=== PATIENT | male | born 1945 | race Caucasian/White ===

== ENCOUNTER 2019-01-15 08:11 | Inpatient (IN) ==
[2019-01-15] MEDS ORDERED: PROTONIX 80 MG in NS 80 ML IV ONE (09:23)
[2019-01-15] MEDS ORDERED: NS 1,000 ML IV ONE (09:23)
[2019-01-15 09:41] LABS: BASO# 0.02 X1000 (0.0-0.2); BASO% 0.4 % (0.0-0.8); EOS# 0.05 X1000 (0.0-0.7); EOS% 1.1 % (0.0-10.0); HEMATOCRIT 39.9 % (42.0-52.0); LYMPH# 0.45 X1000 (1.2-3.4); MCH 30.4 PG (27-31); MCHC 32.6 g/dL (33-37); MCV 93.4 FL (81-99); MONO# 0.61 X1000 (0.11-0.59); MONO% 13.5 % (1.7-9.3); MPV 11.3 FL (7.4-10.4); NEUT# 3.39 X1000 (1.4-6.5); PLT 251 X1000 (130-400); RBC 4.27 XMIL (4.7-6.1); RDW 12.7 % (11.5-14.5); WBC 4.52 X1000 (4.8-10.8)
[2019-01-15 09:49] LABS: INR 1.32; PROTIME 16.6 Seconds (11.0-16.0)
[2019-01-15 09:50] LABS: PTT 33.9 Seconds (22.3-41.8)
[2019-01-15 09:59] LABS: AGAP 11; ALB/GLOB RATIO 1.3; ALBUMIN 3.4 g/dL (3.5-5.0); ALKALINE PHOSPHATASE 77 U/L (32-122); BUN 23 mg/dL (8-22); CALCIUM 8.6 mg/dL (8.8-10.2); CHLORIDE 94 mmol/L (98-107); COSMO 270; CREATININE 0.9 mg/dL (0.7-1.2); ESTIMATED GFR > 60; GLUCOSE 105 mg/dL (70-104); GOT 17 U/L (10-34); GPT 8 U/L (10-44); POTASSIUM 3.2 mmol/L (3.5-5.1); SODIUM 133 mmol/L (136-145); TCO2 28 mmol/L (25-35); TOTAL BILIRUBIN 0.46 mg/dL (0.20-1.00); TOTAL PROTEIN 6.1 g/dL (6.3-8.3)
--- NOTE | 2019-01-15 11:00 | Diag Imaging Result Doc PS360 ---
EXAM: CHEST-PORTABLE - 01/15/2019 HISTORY: gi bleeding TECHNIQUE: Portable chest COMPARISON: None. FINDINGS: Inspiration is somewhat shallow. There is mild atelectasis at the left base. Lungs otherwise appear clear. There is no pleural effusion or pneumothorax identified. Heart size appears within normal limits. IMPRESSION: Somewhat shallow inspiration, mild atelectasis at left base. No other evidence of acute disease. Electronically signed by Arcenio Matute 01/15/2019 10:57 AM
--- NOTE | 2019-01-15 12:31 | Diag Imaging Result Doc PS360 ---
EXAM: CT ABD/PELVIS W/IV CONT ONLY - 01/15/2019 HISTORY: colitis TECHNIQUE: CT abdomen/pelvis with intravenous contrast COMPARISON: 05/21/2012 CT pelvis with contrast, 04/21/2009 CT renal stone search without contrast FINDINGS: There are no substantial abnormalities of the liver, spleen, adrenal glands, pancreas identified. The gallbladder is mildly prominent in size and appears to be chronic. There is a 1.8 cm partially calcified gallstone in gallbladder. There is no substantial gallbladder wall thickening or pericholecystic inflammation identified. The bilateral kidneys enhance homogeneously except for cyst at the lower right kidney. There is no hydronephrosis. There are no substantially enlarged lymph nodes identified. There are lumbar spine degenerative changes noted. There is no evidence of bowel obstruction. The right colon is tortuous. The appendix is unremarkable. There is extensive diverticulosis along the descending and sigmoid colon. There is apparent mild wall thickening along the descending and sigmoid colon which may relate to mild colitis. There is no focal inflammation identified which would indicate diverticulitis. There is no free air, free fluid, or abscess identified. IMPRESSION: Extensive descending and sigmoid colon diverticulosis. No discrete diverticulitis. Mild wall thickening along the descending and sigmoid colon suggestive of mild colitis. No abscess. No free air. 1.8 cm gallstone in gallbladder. No pericholecystic inflammation. This exam was performed using automated exposure control, adjustment of mA or kV according to patient size, and/or use of iterative reconstruction technique. Electronically signed by Arcenio Matute 01/15/2019 12:29 PM
[2019-01-15] MEDS ORDERED: ZOSYN 4.5 GM in NS 100 ML IV ONE (12:50)
--- NOTE | 2019-01-15 12:55 | PROVIDER DOCUMENTATION ---
This chart was entered by Katrin Botello Scribe, acting as scribe for Rd Roach MD. HPI-Abdominal Pain/GI Problem - General Chief Complaint: GI Bleed Stated Complaint: ABD PAIN,DIARRHEA WITH BLOOD Time Seen by Provider: 01/15/19 09:22 Allergies/Adverse Reactions: Patient Allergies Allergy/AdvReac Type Severity Reaction Status Date / Time No Known Allergies Allergy Verified 01/15/19 09:47 Home Medications: Home Medication List Medication Instructions Recorded Confirmed Last Taken Type Amlodipine Besylate 10 mg PO DAILY 01/15/19 01/15/19 01/15/19 History Amoxicillin 500 mg PO BID 01/15/19 01/15/19 01/15/19 History Apalutamide [Erleada] 60 mg PO 4XDAY 01/15/19 01/15/19 01/15/19 History Apixaban [Eliquis] 5 mg PO BID 01/15/19 01/15/19 01/15/19 History Clarithromycin [Biaxin] 500 mg PO BID 01/15/19 01/15/19 01/15/19 History Hydrochlorothiazide 25 mg PO DAILY 01/15/19 01/15/19 01/15/19 History Metoprolol Succinate E.r. [Toprol 50 mg PO QHS 01/15/19 01/15/19 01/14/19 History Xl] Metoprolol Succinate E.r. [Toprol 100 mg PO QAM 01/15/19 01/15/19 01/15/19 History Xl] Omeprazole 40 mg PO DAILY 01/15/19 01/15/19 01/15/19 History - History of Present Illness-ABD Nature of Presenting Problems: 73 yom presents to er w/cc low abd pain and rectal bleed for last 24 hours. pt was recently d/c [facility] for [facility]asic aneurysm. pt on rx elaquis for afib. pt has hx of erosive esophagitus and gastritis but no hx of gi bleed. pt is pallor but pleasant and in no distress at bedside. Abdominal Pain Onset Location: reports: RLQ, LLQ Pain Radiation: reports: no radiation Severity in ED: reports: moderate Onset/Duration: reports: 24 hours ago Timing: reports: still present Activities at Onset: reports: none Modifying Factors: improves with: nothing Associated Symptoms: reports: denies symptoms. denies: diarrhea, nausea, vomiting Last BM: unsure Dark Stools Present?: reports: none noticed Rectal Bleeding: reports: blood mixed with stool Rectal Pain: reports: none Emesis Description: reports: none Review of Systems - Adult - REVIEW OF SYSTEMS - ADULT Constitutional: reports: no symptoms reported. denies: fever, fatique, night sweats Eyes: reports: no symptoms reported Ears, Nose, Mouth & Throat: reports: no symptoms reported Cardiovascular: reports: no symptoms reported Respiratory: reports: no symptoms reported Gastrointestinal: reports: see HPI, abdominal pain (low abd), rectal bleeding. denies: diarrhea, nausea, vomiting Genitourinary: reports: no symptoms reported Musculoskeletal: reports: no symptoms reported Integumentary: reports: no symptoms reported Neurological: reports: no symptoms reported Psychiatric: reports: no symptoms reported Endocrine: reports: no symptoms reported Hematologic/Lymphatic: reports: no symptoms reported Allergic/Immunologic: reports: no symptoms reported All Other Systems: Reviewed and Negative Past History - Adult - PAST MEDICAL HISTORY-ADULT Review of Records: reports: Nursing Assessment Review, Medications Reviewed, Social history reviewed & non-contributory. Major Childhood Illnesses: reports: denies history Cardiovascular: reports: A-Fib, HTN, hyperlipidemia Respiratory: reports: denies history Gastrointestinal: reports: denies history Obstetrical/Gynecological: reports: denies history Genitourinary: reports: prostate cancer Musculoskeletal: reports: denies history Neurological: reports: denies history Endocrine/Immune: reports: denies history Other Conditions: reports: denies history - PRIOR SURGERIES/PROCEDURES Surgical/Procedure History: reports: orthopedic (extremity), other (5.3 cm ascending aortic aneurysm, prostate) - IMMUNIZATION STATUS Childhood Immunizations: See Nurse Assessment Flu Vaccine: See Nurse Assessment - FAMILY HISTORY Family History: reviewed, not pertinent - SOCIAL HISTORY Smoking: non-smoker Substance Use: none/never Physical Exam-General - PHYSICAL EXAM-ADULT Initial Vital Signs Reviewed: Yes - CONSTITUTIONAL General Appearance: appears well, alert, no apparent distress. negative: lethargic, slow to respond, obtunded - EYES Eyes: PERRL/EOMI, pink conjunctivae - HEAD, EARS, NOSE, MOUTH & THROAT HENMT: normocephalic/atraumatic. negative: moist mucous membranes (dry mucous membranes), angioedema, frontal tenderness, maxillary tenderness - NECK Neck: non-tender, full range of motion, supple, normal inspection - RESPIRATORY Respiratory: chest non-tender, lungs clear, normal breath sounds - CARDIOVASCULAR Cardiovascular: normal peripheral pulses, no edema, no gallop, no JVD, no murmur , irregularly irregular. negative: regular rate, rhythm, bradycardia, tachycardia - GASTROINTESTINAL (ABDOMEN) Abdominal Exam: normal bowel sounds, soft, no organomegaly, no pulsatile mass, tenderness (LLQ and RLQ to palp, LLQ WORSE THAN RIGHT.). negative: non tender, guarding, rigid, rebound - GENITOURINARY Rectal Exam: hemorrhoids (slight @ 0600.), other (blood mixed w/brown stool) Hemoccult Exam: heme positive stool - LYMPHATIC Lymphatic: no adenopathy - MUSCULOSKELETAL Back Exam: normal inspection Extremity: normal range of motion, non-tender, normal inspection - SKIN Integumentary: normal turgor, warm/dry, pallor. negative: normal color, blanching, ecchymosis, rash - NEUROLOGIC Neurologic: grossly normal, no motor/sensory deficits - PSYCHIATRIC Psych/Mental Status: normal mood/affect, normal thought content, normal thought process, oriented x 3 Progress - PLAN OF CARE/RESULTS Progress/Plan/Lab Results: Vital Signs - 8 hr 01/15/19 08:14 Temperature 97.4 F L Pulse Rate 89 Respiratory Rate 18 Blood Pressure 145/77 O2 Sat by Pulse Oximetry 96 01/15/19 09:32 Stool Occult Blood ([facility]) - Final Stool Laboratory Results - last 24 hr 01/15/19 01/15/19 01/15/19 09:28 09:28 09:28 WBC 4.52 L RBC 4.27 L Hgb 13.0 L Hct 39.9 L MCV 93.4 MCH 30.4 MCHC 32.6 L RDW Std Deviation 12.7 Plt Count 251 MPV 11.3 H Immature Gran % (Auto) 0.0 Neut % (Auto) 75.0 Lymph % (Auto) 10.0 L Cedar % (Auto) 13.5 H Eos % (Auto) 1.1 Baso % (Auto) 0.4 Immature Gran # (Auto) 0.00 Neut # (Auto) 3.39 Lymph # (Auto) 0.45 L Cedar # (Auto) 0.61 H Eos # (Auto) 0.05 Baso # (Auto) 0.02 PT 16.6 H INR 1.32 PTT (Actin FS) 33.9 Sodium 133 L Potassium 3.2 L Chloride 94 L Carbon Dioxide 28 Anion Gap 11 BUN 23 H Creatinine 0.9 Estimated GFR/1.73 m2 > 60 BUN/Creatinine Ratio 26 Glucose 105 H Calculated Osmolality 270 Calcium 8.6 L Total Bilirubin 0.46 AST 17 ALT 8 L Alkaline Phosphatase 77 Total Protein 6.1 L Albumin 3.4 L Globulin 2.7 Albumin/Globulin Ratio 1.3 Blood Type Antibody Screen 01/15/19 09:28 WBC RBC Hgb Hct MCV MCH MCHC RDW Std Deviation Plt Count MPV Immature Gran % (Auto) Neut % (Auto) Lymph % (Auto) Cedar % (Auto) Eos % (Auto) Baso % (Auto) Immature Gran # (Auto) Neut # (Auto) Lymph # (Auto) Cedar # (Auto) Eos # (Auto) Baso # (Auto) PT INR PTT (Actin FS) Sodium Potassium Chloride Carbon Dioxide Anion Gap BUN Creatinine Estimated GFR/1.73 m2 BUN/Creatinine Ratio Glucose Calculated Osmolality Calcium Total Bilirubin AST ALT Alkaline Phosphatase Total Protein Albumin Globulin Albumin/Globulin Ratio Blood Type O POSITIVE Antibody Screen NEGATIVE Orders Category Date Time Status Nursing- Obtain EKG once Care 01/15/19 09:23 Active CHEST-PORTABLE [RAD] Stat Exams 01/15/19 09:[address] ABD/PELVIS W/IV CONT ONLY [CT] Stat Exams 01/15/19 09:24 Ordered CBC WITH ELECTRONIC DIFF [HEME] Stat Lab 01/15/19 09:28 Completed COMPREHENSIVE METABOLIC PANEL [CHEM] Stat Lab 01/15/19 09:28 Completed OCCULT BLOOD SCREENING [STOOL] Stat Lab 01/15/19 09:32 Completed PROTIME WITH INR [COAG] Stat Lab 01/15/19 09:28 Completed PTT [COAG] Stat Lab 01/15/19 09:28 Completed TYPE & SCREEN [BBK] Stat Lab 01/15/19 09:28 Completed 0.9% Sodium Chloride Inj [Ns] 1,000 ml Med 01/15/19 09:23 Discontinued IV 999 mls/hr Pantoprazole [Protonix] 80 mg Med 01/15/19 09:23 Discontinued 0.9% Sodium Chloride Inj [Ns] 80 ml IV NOW GI Bleed (possible) Stat Oth 01/15/19 09:14 Ordered EKG [EKG] Stat Ther 01/15/19 09:23 Ordered Result Diagrams: 01/15/19 09:28 01/15/19 09:28 - REASSESSMENT Reassessment #1 Time Reassessed: 12:53 Status: improving (Given iVF, protonix and zosyn) - EKG 1 Time of EKG reading by physician:: 10:00 EKG Read and Signed by:: Rd Roach (ARTIFACT PRESENT ) EKG Interpretation (*Must complete 3 of following elements*): Abnormal Rate: 77 (EARLY TRANSITION ) Rhythm: AFIB, RATE CONTROLLED ST Wave: non-specific ST changes ([id number]) Comments: NO STEMI - XRAY 1 XRAY Study: Chest Impression: Abnormal, See EMR Report ( EXAM: CHEST-PORTABLE - 01/15/2019 HISTORY: gi bleeding TECHNIQUE: Portable chest COMPARISON: None. FINDINGS: Inspiration is somewhat shallow. There is mild atelectasis at the left base. Lungs otherwise appear clear. There is no pleural effusion or pneumothorax identified. Heart size appears within normal limits. IMPRESSION: Somewhat shallow inspiration, mild atelectasis at left base. No other evidence of acute disease. Electronically signed by Arcenio Matute 01/15/2019 10:57 AM) - CT/MRI 1 CT Study: Abdomen, Pelvis Impression: Abnormal, See EMR Report (EXAM: CT ABD/PELVIS W/IV CONT ONLY - 01/15/2019 HISTORY: colitis TECHNIQUE: CT abdomen/pelvis with intravenous contrast COMPARISON: 05/21/2012 CT pelvis with contrast, 04/21/2009 CT renal stone search without contrast FINDINGS: There are no substantial abnormalities of the liver, spleen, adrenal glands, pancreas identified. The gallbladder is mildly prominent in size and appears to be chronic. There is a 1.8 cm partially calcified gallstone in gallbladder. There is no substantial gallbladder wall thickening or pericholecystic inflammation identified. The bilateral kidneys enhance homogeneously except for cyst at the lower right kidney. There is no hydronephrosis. There are no substantially enlarged lymph nodes identified. There are lumbar spine degenerative changes noted. There is no evidence of bowel obstruction. The right colon is tortuous. The appendix is unremarkable. There is extensive diverticulosis along the descending and sigmoid colon. There is apparent mild wall thickening along the descending and sigmoid colon which may relate to mild colitis. There is no focal inflammation identified which would indicate diverticulitis. There is no free air, free fluid, or abscess identified. IMPRESSION: Extensive descending and sigmoid colon diverticulosis. No discrete diverticulitis. Mild wall thickening along the descending and sigmoid colon suggestive of mild colitis. No abscess. No free air. 1.8 cm gallstone in gallbladder. No pericholecystic inflammation. This exam was perf ormed using automated exposure control, adjustment of mA or kV according to patient size, and/or use of iterative reconstruction technique. Electronically signed by Arcenio Matute 01/15/2019 12:29 PM) - CONSULTS/PCP/HOSPITALIST Notification #1 *Consult/PCP/Hospitalist*: Saniya Time Discussed: 12:52 Consult Disposition: Admit Departure - Departure Date of Disposition Decision: 01/15/19 Time of Disposition Decision: 12:53 DIAGNOSIS: Lower gastrointestinal bleeding, Anticoagulant-induced bleeding, Colitis, Diverticulosis of both small and large intestine without perforation or abscess with bleeding Disposition: ADMITTED INPATIENT 09 Certified Medical Emergency: Emergent Condition: Fair Referrals and Follow-Ups: Janki Mancini MD [Primary Care Provider] - - Critical Care Note This patient required my direct & personal management of CC.: No Attestation - Physician/ DAMIR Attestation Patient care was provided by Advanced Practice Provider:: No The physician spent face to face time with patient:: Yes Advanced Practice Provider documentation review:: Supervising physician onsite and consulted in the evaluation and care of this patient. The physician did have a face to face encounter with the patient. This chart was documented by the indicated scribe, (Katrin Botello Scribe) and accurately reflects the services I performed and decisions made by , Rd Roach MD, as attested by the provider's signature.
[2019-01-15] MEDS ORDERED: TYLENOL PO PRN (13:09)
[2019-01-15] MEDS ORDERED: LEVAQUIN 750 MG/D5W 750 MG/150 ML IVPB IV ONE (13:09)
[2019-01-15] MEDS ORDERED: ZOFRAN IV PRN (13:09)
[2019-01-15] MEDS ORDERED: SODIUM CHLORIDE 0.9% INJ SCH (13:15)
[2019-01-15 13:25] LABS: IRON SATURATION 24 %; TIBC 220 ug/dL; TOTAL IRON 52 ug/dL (53-167); UNBOUND IRON 168 ug/dL (112-346)
[2019-01-15 13:45] LABS: FERRITIN 177 ng/mL (30-400)
--- NOTE | 2019-01-15 14:46 | HISTORY AND PHYSICAL ---
PRIMARY CARE PROVIDER: Dr. Janki Mancini. PRIMARY ONCOLOGIST: Dr. Barrios. PRIMARY INSIDE SALES SUPERVISOR: Dr. Gonzales. CHIEF COMPLAINT: Abdominal pain and blood in the stool. HISTORY OF PRESENT ILLNESS: Mr. Benja Clay is a 73-year-old, male with a medical history of diverticulosis, a 5.3 cm ascending aortic aneurysm being watched by cardiology, atrial fibrillation, he was started on Eliquis a week ago, and prostate cancer that he has been fighting for 10 years. Now states that since they were recently, 2 to 3 weeks ago, monitoring his ascending aortic aneurysm that they had noticed something with his esophagus. Dr. Barroso did an EGD and diagnosed him with esophagitis and H. pylori for which he was treating him with using amoxicillin and clarithromycin. He has been on this for at least a week and then 2 to 3 days ago, he started noticing he started having excessive diarrhea that had an odd smell to it. Then, this morning, he had bright red blood in his stool. He has generalized lower abdominal pain. The CT showed extensive diverticulosis without diverticulitis. Then it also showed mild colitis. His stool was positive for blood and he has been started on Protonix. Vital signs are stable. Eliquis will be held for now. There is high suspicion that C. difficile colitis may be the culprit, although his white count is not elevated. It is noted that he was on an NSAID up until about 2 to 3 weeks ago when he was taken off of it. PAST MEDICAL HISTORY: 1. Diverticulosis. 2. Ascending aortic aneurysm. 3. Chronic atrial fibrillation, on Eliquis for a week now. 4. Hypertension. 5. GERD. 6. Prostate cancer over 10 years with a prostatectomy and chemotherapy. 7. Hyperlipidemia. 8. Esophagitis with H. pylori. 9. Arthritis. SURGICAL HISTORY: 1. Prostatectomy. 2. Bilateral feet surgery when he was a child. 3. EGD around 2 to [address] Barroso. SOCIAL HISTORY: He uses a rolling walker to get around. He denies tobacco, alcohol, or illicit drug use. He lives alone in [facility]. FAMILY HISTORY: Mother: No medical conditions. Father: Melanoma. ALLERGIES: No known drug allergies. HOME MEDICATIONS: 1. Toprol-XL 50 mg p.o. nightly and 100 mg p.o. daily. 2. Amlodipine 10 mg p.o. daily. 3. Eliquis 5 mg p.o. twice daily. 4. Erleada 60 mg p.o. 4 times a day. 5. Hydrochlorothiazide 25 mg p.o. daily. 6. Omeprazole 40 mg p.o. daily. REVIEW OF SYSTEMS: Fourteen point review of systems are complete and all are negative except for those mentioned above in the HPI. PHYSICAL EXAMINATION: VITAL SIGNS: Temperature 97.4 degrees, heart rate 72, respiratory rate 19, blood pressure 133/80, O2 saturation 95% on room air. GI: Soft. Tender in the bilateral lower quadrants. Positive bowel sounds x4. EXTREMITIES: Decreased range of motion. Decreased strength in the lower extremities compared to the upper. NEUROLOGIC: A and O x3. Follows commands. Sensory is intact. SKIN: Warm, dry, intact. CARDIOVASCULAR: S1, S2. Regular rate and rhythm. No rubs, gallops, murmurs. He has got +2 dorsalis pedal and radial pulses. There is 1+ pitting lower extremity edema. Negative for JVD or carotid bruits. LABORATORY DATA: White blood cells 4000, hemoglobin 13, hematocrit 39, platelet count 251,000. INR is 1.32, PTT is 33.9. Sodium 133, potassium 3.2, BUN 23, creatinine 0.9, glucose 105, calcium 8.6. Iron 52, total iron binding capacity is 220, saturation 24, unsaturated 168, ferritin 177. Bilirubin 0.46, AST 17, ALT 8, albumin 3.4. Vitamin B12 of 234, folate 13.9. IMAGING: Shows extensive descending and sigmoid colon diverticulosis. No discrete diverticulitis. Mild wall thickening along the descending and sigmoid colon, suggestive of mild colitis. No abscess or free air. There is a 1.8 cm gallstone in the gallbladder. No pericholecystic inflammation. ASSESSMENT AND PLAN: 1. Gastrointestinal bleed secondary to recent esophagitis which he has been on omeprazole, clarithromycin, and amoxicillin for. Probably change his antibiotics around. Bleeding, possibly from Eliquis that was just started a week ago. 2. Diarrhea with recent antibiotic coverage. Could be Clostridium difficile colitis. We will do stool studies. 3. Atrial fibrillation, rate controlled at the moment. Continue metoprolol. We will have to redress anticoagulation once bleeding is resolved. 4. Reported 5.3 cm ascending aortic aneurysm, being monitored by his pool hall inspector. 5. Prostate cancer. Continue Erleada. May consult Dr. Barrios if needed. 6. Hyperlipidemia. His statin was held while he was on antibiotics. 7. Arthritis. No changes. 8. Deep venous thrombosis prophylaxis. Sequential compression devices. Dictated by CHAO Morton for Maykel Ya MD Addendum: Patient seen and examined by myself. Agree with GRAVEL WEIGHER note. It reflects my assessment and plan. Patient is being admitted to hospital for GI bleed secondary to recent esophagitis. Will consult GI and will do stool studies. Will monitor patient closely. cc: CHAO Morton MD [facility] CENTEREdi
[2019-01-15] MEDS: NS 1,000 ML IV SCH (15:44)
[2019-01-15] MEDS: CARAFATE LIQUID PO SCH ×2 (16:08→20:26)
--- NOTE | 2019-01-15 17:53 | EKG Report ---
Test Performed on : 01/15/2019 09:41:17 AM Test Reason : Gi bleeding Blood Pressure : / mmHG Vent. Rate : 077 BPM Atrial Rate : 227 BPM P-R Int : 000 ms QRS Dur : 074 ms QT Int : 394 ms P-R-T Axes : 000 003 -10 degrees QTc Int : 445 ms Atrial fibrillation. T wave abnormality, consider anterior ischemia Abnormal ECG No previous ECGs available Unconfirmed Result
[2019-01-15] MEDS: FLAGYL 500 MG/NS 500 MG/100 ML IVPB IV SCH ×2 (18:57→21:41)
[2019-01-15] MEDS: PROTONIX IV SCH (20:27)
[2019-01-15] MEDS: TOPROL XL PO SCH (20:38)
[2019-01-16] MEDS: CARAFATE LIQUID PO SCH ×4 (01:07→20:31)
[2019-01-16] MEDS: FLAGYL 500 MG/NS 500 MG/100 ML IVPB IV SCH ×4 (01:08→20:33)
[2019-01-16 07:25] LABS: BASO# 0.01 X1000 (0.0-0.2); BASO% 0.2 % (0.0-0.8); EOS# 0.04 X1000 (0.0-0.7); EOS% 0.8 % (0.0-10.0); HEMATOCRIT 38.2 % (42.0-52.0); HEMOGLOBIN 12.5 g/dL (14.0-18.0); LYMPH# 0.65 X1000 (1.2-3.4); MCH 30.6 PG (27-31); MCHC 32.7 g/dL (33-37); MCV 93.4 FL (81-99); MONO# 0.54 X1000 (0.11-0.59); MONO% 10.8 % (1.7-9.3); NEUT# 3.77 X1000 (1.4-6.5); NEUT% 75.2 % (42.2-75.2); PLT 248 X1000 (130-400); RBC 4.09 XMIL (4.7-6.1); RDW 12.4 % (11.5-14.5); WBC 5.01 X1000 (4.8-10.8)
[2019-01-16 07:54] LABS: INR 1.12; PROTIME 14.6 Seconds (11.0-16.0)
[2019-01-16 07:55] LABS: PTT 34.8 Seconds (22.3-41.8)
[2019-01-16 07:56] LABS: AGAP 8; ALB/GLOB RATIO 1.3; ALBUMIN 3.1 g/dL (3.5-5.0); ALKALINE PHOSPHATASE 69 U/L (32-122); BUN 9 mg/dL (8-22); CALCIUM 8.6 mg/dL (8.8-10.2); CHLORIDE 98 mmol/L (98-107); COSMO 269; CREATININE 0.6 mg/dL (0.7-1.2); ESTIMATED GFR > 60; GLUCOSE 104 mg/dL (70-104); GOT 17 U/L (10-34); GPT 8 U/L (10-44); MAGNESIUM 1.7 mg/dL (1.5-2.7); POTASSIUM 3.5 mmol/L (3.5-5.1); SODIUM 135 mmol/L (136-145); TCO2 29 mmol/L (25-35); TOTAL BILIRUBIN 0.65 mg/dL (0.20-1.00); TOTAL PROTEIN 5.5 g/dL (6.3-8.3)
[2019-01-16] MEDS: TOPROL XL PO SCH ×2 (08:42→20:32)
[2019-01-16] MEDS: PROTONIX IV SCH ×2 (08:42→20:31)
[2019-01-16] MEDS: HYDROCHLOROTHIAZIDE PO SCH (08:42)
--- NOTE | 2019-01-16 11:45 | PROGRESS NOTE ---
DATE: 01/16/2019 SUBJECTIVE: The patient reports feeling better. Not having more episodes of black stools or bloody stools. OBJECTIVE: Vital Signs: Temperature 98.1 degrees, heart rate 62, respiratory rate 14, blood pressure 146/61, O2 saturation 99% on room air. General Examination: This is a 73-year-old, male, lying in bed, in no acute distress. Cardiovascular Examination: S1 and S2 heard. No murmurs, gallops, or rubs. Regular rate and rhythm. Respiratory Examination: Clear bilaterally to auscultation. No work of breathing or using accessory muscles. Abdomen: Soft. Mild tenderness to palpation in bilateral lower quadrants. There are no signs of peritoneal irritation. Extremities: No clubbing or cyanosis. There is 1+ pitting edema in both lower extremities. Neurological Examination: The patient is alert and oriented x3. Moves 4 extremities. Laboratory Data: White cell count 5.01, hemoglobin 12.5, hematocrit 38.2, platelets 248,000. Sodium 135, creatinine 0.6. ASSESSMENT AND PLAN: 1. Gastrointestinal bleeding. At this point, we are not sure where this bleeding is coming from. He has a history of esophagitis. Also, the patient had been started on Eliquis from a week ago. At this point, we will continue to monitor. Gastroenterology apparently will do an endoscopy and colonoscopy tomorrow. 2. Clostridium difficile colitis suspected. Stool studies have been ordered but results are not yet back. We will continue to monitor. 3. Atrial fibrillation. Rate controlled. Continue with metoprolol but, of course, anticoagulation has been stopped. 4. Ascending aortic aneurysm. Aware. Patient has been monitored by his neuropsychiatric aide. 5. Prostate cancer. Aware. We will continue home medications. 6. Hyperlipidemia. Statin has been held. 7. Deep vein thrombosis prophylaxis with sequential compression devices. 8. Disposition, following the lead from the signing agent. cc: Maykel Ya MD
[2019-01-16] MEDS ORDERED: GOLYTELY PO ONE (14:00)
--- NOTE | 2019-01-16 14:01 | GASTROENTEROLOGY CONSULTATION ---
DATE: 01/16/2019 REASON FOR CONSULTATION: Gastrointestinal bleed and colitis. HISTORY OF PRESENT ILLNESS: Mr. Clay is a 73-year-old male who has a history of diverticulitis, ascending aortic aneurysm and history of arthritis. The patient has been seeing his oncologist Dr. Barrios for his prostate cancer. He sees his outpatient receptionist, Dr. Gonzales for his heart. The patient was recently started on Eliquis a week back. The patient mentioned that he had 3 loose stools and he noticed that the last bowel movement had some bright red blood in it. He complained of nausea, vomiting and he mentioned that he had abdominal pain which he rated as 7/10 and it was a generalized pain all over. The patient said that he takes aspirin and he was he started on Eliquis recently. The patient mentioned that Dr. Graham had done his EGD and he was diagnosed with esophagitis and his H pylori was positive and was treated with antibiotics antibiotic, amoxicillin, and clarithromycin. He does not remember the exact date when he had the EGD done, but he also mentioned that he had a colonoscopy done 5 years back and they found out that he had some polyps. Abdomen and pelvis CT showed extensive descending and sigmoid colon diverticulosis but no discrete diverticulitis. Mild wall thickening along the descending and the sigmoid colon suggesting mild colitis. No abscess. No free air. 1.8 cm gallstone in the gallbladder. No pericholecystic inflammation. The patient's occult blood was positive. PAST MEDICAL HISTORY: Diverticulosis, ascending aortic aneurysm, atrial fibrillation on Eliquis a week back, hypertension, gout, prostate cancer greater than 10 years with prostatectomy and radiation, hyperlipidemia, esophagitis, history of H-pylori and arthritis. SURGICAL HISTORY: Prostatectomy, bilateral feet surgery, bilateral cataract surgery. SOCIAL HISTORY: The patient is single. He lives alone in an apartment. He has denied any alcohol, tobacco use, or illicit drug use. The patient does use a rolling walker to get around. FAMILY HISTORY: His dad had melanoma. Mother had staph infection in the knee. Both his grandmothers had breast cancer and his brother had brain cancer. ALLERGIES: No known drug allergies. MEDICATIONS: Home medications are amlodipine 10 mg daily, amoxicillin 500 mg twice a day, Erleada 60 mg p.o. 4 times a day, Eliquis 5 mg twice a day. Biaxin 500 mg p.o. twice a day, hydrochlorothiazide 25 mg daily, metoprolol 50 mg at bedtime, omeprazole 40 mg daily, and metoprolol 100 mg in the a.m. REVIEW OF SYSTEM: As per HPI. Otherwise, 12 point review of system is negative. PHYSICAL EXAMINATION: Vital Signs: Temperature 98.1 degrees, pulse 62, respirations 14, blood pressure 146/61, oxygen saturation 99% on room air. The patient's weight 171 pounds. BMI is 27.6 kg/m2. General: He is alert, oriented x3. Answering questions appropriately and in no acute distress. HEENT: Pale conjunctivae, no icterus. PERRL Neck: Supple. Lungs: Clear to auscultation in the anterior capps. Cardiovascular: Regular rate and rhythm. Abdomen: Soft, tender, nondistended. Active bowel sounds heard in all 4 quadrants. Extremities: No clubbing, no cyanosis. Generalized edema in the lower extremities. Neurologic: Alert oriented x3. Nonfocal. Cranial nerves 2-12 grossly intact. LABS: WBC of 5.01, RBC 4.09, hemoglobin 12.5, hematocrit 38.2, platelet count 248,000. PT 14.6, INR 1.12. Sodium 135, potassium 3.5, chloride 98, carbon dioxide 29, anion gap 8, BUN 9, creatinine 0.6, glucose 104, calcium 8.6, magnesium 1.7, total bilirubin 0.65, AST 17, ALT 8, alkaline phosphatase 69, albumin 3.1. IMAGING: CT of the abdomen and pelvis that showed extensive descending and sigmoid colon diverticulosis. No discrete diverticulitis. Mild thickening along the descending and the sigmoid colon suggestive of mild colitis. No abscess. No free air. 1.8 cm gallstone in the gallbladder. No pericholecystic inflammation. Chest x-ray showed somewhat shallow inspiration and mild atelectasis in the left base. No other evidence of acute disease. ASSESSMENT AND PLAN: GI bleed Nausea and vomiting Diarrhea Colitis A-fib Prostate cancer s/p radiation Ascending aortic aneurysm Arthritis PLAN: Plan Mr. Clay is a 73-year-old male with a history of prostate cancer status post radiation and a history of ascending aortic aneurysm. GI has been consulted for his nausea, vomiting, and GI bleed. The patient is currently on Protonix 40 mg IV twice a day. He is receiving Carafate and 1 g p.o. every 6 hours. He is on normal saline at 50 mL, receiving Flagyl for his diarrhea and antiemetic Zofran for his nausea and vomiting. His C-diff antigen and toxin was negative. We plan to do a colonoscopy tomorrow. Further plan of care will be based on the colonoscopy findings. Discussed the risks, benefits, and alternatives of the procedure to the patient. The patient acknowledges understanding of the plan of care. We will continue to monitor the patient and follow the plan of care per PCP. This plan was discussed with Dr. Houser. Please call us for any further questions or concerns. Thank you for your consult. Please call us for any further questions or concerns. Dictated by CHAO Nunez for Arvin Houser MD cc: Arvin Houser MD I have seen and examined the patient myself and I agree with the above plan of care. Discussed the above with the patient and all questions were answered. ADELIA
[2019-01-16] MEDS: NS 1,000 ML IV SCH (17:36)
[2019-01-17] MEDS: NS 1,000 ML IV SCH ×2 (01:53→04:41)
[2019-01-17] MEDS: CARAFATE LIQUID PO SCH ×2 (03:06→13:56)
[2019-01-17] MEDS: FLAGYL 500 MG/NS 500 MG/100 ML IVPB IV SCH ×2 (03:07→08:32)
[2019-01-17 07:28] LABS: BASO# 0.01 X1000 (0.0-0.2); BASO% 0.2 % (0.0-0.8); EOS# 0.07 X1000 (0.0-0.7); EOS% 1.3 % (0.0-10.0); HEMOGLOBIN 12.8 g/dL (14.0-18.0); LYMPH# 0.85 X1000 (1.2-3.4); MCH 30.3 PG (27-31); MCHC 32.8 g/dL (33-37); MCV 92.2 FL (81-99); MONO# 0.72 X1000 (0.11-0.59); MONO% 13.6 % (1.7-9.3); NEUT# 3.65 X1000 (1.4-6.5); NEUT% 68.9 % (42.2-75.2); PLT 278 X1000 (130-400); RBC 4.23 XMIL (4.7-6.1); RDW 12.3 % (11.5-14.5)
[2019-01-17 07:33] VITALS: BP 140/72
[2019-01-17 08:05] LABS: AGAP 12; ALB/GLOB RATIO 1.5; ALBUMIN 3.5 g/dL (3.5-5.0); ALKALINE PHOSPHATASE 70 U/L (32-122); BUN 6 mg/dL (8-22); CALCIUM 8.9 mg/dL (8.8-10.2); CHLORIDE 96 mmol/L (98-107); COSMO 273; CREATININE 0.6 mg/dL (0.7-1.2); ESTIMATED GFR > 60; GLUCOSE 100 mg/dL (70-104); GOT 21 U/L (10-34); GPT 9 U/L (10-44); MAGNESIUM 1.7 mg/dL (1.5-2.7); POTASSIUM 3.1 mmol/L (3.5-5.1); SODIUM 138 mmol/L (136-145); TCO2 30 mmol/L (25-35); TOTAL BILIRUBIN 0.68 mg/dL (0.20-1.00); TOTAL PROTEIN 5.9 g/dL (6.3-8.3)
[2019-01-17] MEDS: PROTONIX IV SCH (08:32)
[2019-01-17] MEDS ORDERED: PATIENT'S OWN MED PO SCH (09:00)
[2019-01-17] MEDS ORDERED: POTASSIUM CHLORIDE 20 MEQ in NS 1,000 ML IV SCH (11:00)
[2019-01-17] MEDS ORDERED: DIPRIVAN 1% ONE (11:28)
[2019-01-17] MEDS ORDERED: XYLOCAINE-MPF 2% ONE (11:30)
--- NOTE | 2019-01-17 12:01 | ENDOSCOPY OPERATIVE NOTE ---
[facility] ENDOSCOPY OPERATIVE NOTE , COLONOSCOPY PROCEDURE REPORT EXAM DATE: 01/17/2019 PATIENT NAME: Benja Clay MR #: [id number] BIRTHDATE: 1945 ENDOSCOPIST: Kevin Wong MD STATUS: inpatient TOOL GRINDER OPERATOR: INDICATIONS: The patient is a 73 yr old male here for a colonoscopy due to unexplained diarrhea and Positive FOBT. PROCEDURE PERFORMED: Colonoscopy with biopsy MEDICATIONS: Per Anesthesia PREP TYPE: GoLytely
[2019-01-17] MEDS ORDERED: KLOR-CON PO ONE (13:25)
--- NOTE | 2019-01-17 13:43 | PROGRESS NOTE ---
DATE: 01/17/2019 SUBJECTIVE: This patient is not complaining of chest pain or shortness of breath. He is not having tenderness to palpation at the level of the abdomen, he is scheduled for an endoscopy today, colonoscopy, I will add levofloxacin to his medications due to his colitis. OBJECTIVE: Vital Signs: Temperature 98.1 degrees, pulse 71, respiratory rate 20, blood pressure 140/72, oxygen saturation 99 on room air. HEENT: Head normocephalic, no trauma. PERRLA. Neck: Supple. No JVD. No masses. Central trachea. Chest: Clear to auscultation. No wheezing. No rales. Abdomen: Soft. Mild tenderness to palpation in the lower quadrants, but no signs of peritoneal irritation. Extremities: No edema, no clubbing, no cyanosis. Trace pitting edema. Neurological: This patient is awake, alert. He is oriented. He is moving all 4 extremities. LABORATORY: WBC 5.3, hemoglobin 12.8, hematocrit 39, platelets 278,000, sodium 138, potassium 3.1, chloride 96, bicarbonate 30, BUN 6, creatinine 0.6, glucose 100, calcium 8.9, magnesium 1.7. AST 21, ALT 9, alkaline phosphatase 70, albumin 3.5. ASSESSMENT AND PLAN: 1. GI bleed, this patient has been started on Eliquis I believe a week ago, Gastroenterology Department is going to do a colonoscopy tomorrow, he has a history of esophagitis as well. 2. Descending sigmoid colon diverticulosis but no diverticulitis, aware. 3. Descending and sigmoid colon thickening suggestive of mild colitis, no abscess or free air, he has been placed on Flagyl and I will add levofloxacin p.o. to his medications, we ruled out C. difficile colitis, his toxin and antigen are negative. 4. History of atrial fibrillation, rate controlled, continue with metoprolol, but we have stopped the anticoagulation due to gastrointestinal bleed. 5. Ascending aortic aneurysm, aware. The patient has been monitored by his mechanical maintenance engineer. Apparently, he had his appointment last week. 6. Prostate cancer, aware. Continue with the same management. 7. Hyperlipidemia, aware. 8. Deep vein thrombosis prophylaxis with sequential compression devices. 9. Hypokalemia. I will add potassium to his fluids. cc: Davin Schilling MD
[2019-01-17] MEDS: HYDROCHLOROTHIAZIDE PO SCH (13:55)
[2019-01-17] MEDS: TOPROL XL PO SCH (13:55)
[2019-01-17] MEDS ORDERED: LEVAQUIN PO SCH (18:00)
--- NOTE | 2019-01-18 13:46 | DISCHARGE SUMMARY ---
ADMISSION DATE: 01/15/2019 DISCHARGE DATE: 01/17/2019 DISCHARGE DIAGNOSES: 1. Severe nonbleeding diverticulosis noted in the descending colon and sigmoid colon during colonoscopy today, no evidence of colitis. 2. Internal hemorrhoids, likely the FOBT is due to this. 3. History of atrial fibrillation, rate controlled. 4. Admitted initially due to possible GI bleed. This has been ruled out. 5. Ascending aortic aneurysm. 6. Prostate cancer. 7. Hyperlipidemia. 8. Hypokalemia. PROCEDURES PERFORMED: 1. Abdomen and pelvis CT scan dated 01/15/2019 impression: Extensive descending and sigmoid colon diverticulosis, no diverticulitis, mild wall thickening along the descending and sigmoid colon suggestive of mild colitis, no abscess, no free air. 2. Chest x-ray dated 01/15/2019 impression: Somewhat shallow inspiration, mild atelectasis at the left base, no other evidence of acute disease. CONSULTATIONS: Gastroenterology Department, Dr. Houser, and Dr. Wong. As per the spa host's note, he had an esophagogastroduodenoscopy done that showed an esophagitis, and H. pylori was positive and was placed on antibiotics, amoxicillin, clarithromycin, and PPIs. HOSPITAL COURSE: This is a 73-year-old male with a past medical history of diverticulosis, 5.3 cm ascending aortic aneurysm being watched by Cardiology, atrial fibrillation on Eliquis, prostate cancer for the past 10 years, apparently they were monitoring recently his ascending aortic aneurysm, and they noticed something with his esophagus. Chio did an EGD and diagnosed this patient with esophagitis and H. pylori for which he has been treated using amoxicillin, clarithromycin, and PPIs. Apparently this treatment has been for a week, but then 2 or 3 days ago, he started noticing some diarrhea and odd smell to it. We checked a C. difficile toxin and antigen, and both were negative. Apparently, he has some bright red in the stool and generalized lower abdominal pain. CT showed diverticulosis without diverticulitis and also showed some colitis. His stool was positive for blood, and he was started on Protonix. We stopped for now the Eliquis, and there was a high suspicion for C. difficile colitis, but the C difficile antigen and toxin were negative, and the white blood cell count was normal x3 days. He had a colonoscopy done that showed diverticulosis without diverticulitis and showed some internal hemorrhoids, that probably can cause this bleeding. Today after the colonoscopy, this patient has been discharged. We will put him back on his home medications including his blood thinner, this has been recommended by Gastroenterology Department, and follow up with the primary care doctor, which I believe is tomorrow. PHYSICAL EXAMINATION: Vital signs: Temperature 98.1 degrees, pulse 71, respiratory rate 20, blood pressure 140/72, oxygen saturation 99% on room air. This patient is tolerating p.o. HEENT: Head normocephalic, no trauma. PERRLA. Neck: Supple. No JVD. No masses. Central trachea. Chest: Clear to auscultation. No wheezing. No rales. Abdomen: Soft. Slight tenderness to palpation at the level of the lower quadrants, but no signs of peritoneal irritation. Extremities: No edema, no clubbing, no cyanosis. Trace pitting edema. Neurologic: The patient is awake, alert, he is oriented. He is moving all 4 extremities. LABORATORY: WBC 5.3, hemoglobin 12.8, hematocrit 39, platelets 278,000. Sodium 138, potassium 3.1, chloride 96, bicarbonate 30, BUN 6, creatinine 0.6, glucose 100, calcium 8.9, magnesium 1.7, albumin 3.5. DISCHARGE MEDICATIONS: Amlodipine 10 mg p.o. daily, amoxicillin 500 mg p.o. b.i.d. to complete his treatment for H pylori, Erleada 240 mg p.o. daily, Eliquis 5 mg p.o. b.i.d., clarithromycin 500 mg p.o. b.i.d., hydrochlorothiazide 25 mg p.o. daily, Toprol ER 100 mg p.o. q.a.m. and 50 mg p.o. at bedtime, and omeprazole 40 mg p.o. daily. Time discharging this patient is 20 minutes. cc: Davin Schilling MD
== END 2019-01-17 14:44 | disposition home or self-care (01) | DRG 394 ==
LOC: ED 08:11 → EDIPHOLD 14:46 → SUATTDRO 14:46 → 3N 17:45
PROVIDERS: ATTEND Internal Medicine